=== PATIENT | male | born 1995 | race Caucasian/White ===

== ENCOUNTER 2017-02-11 20:32 | Emergency (ER) | payer SELFPAY ==
[~2017-02-11] VITALS: Ht 177.8 cm; Wt 75.4 kg
[~2017-02-11 20:32] MED LIST: LISD70CA3
[2017-02-11 20:37] VITALS: BP 125/71
[2017-02-11 21:23] LABS: ASPARTATE AMINO TRANSFERASE 18 U/L (15-37); BLOOD UREA NITROGEN 9 mg/dL (7-18)
[2017-02-11 21:35] LABS: IS PT STATUS REG ER OR PRE ER? YES
== END 2017-02-11 23:10 | disposition home or self-care (01) ==
LOC: ED 21:41
DX: M54.5 Low back pain (principal); R07.89 Other chest pain; F90.9 Attention-deficit hyperactivity disorder, unspecified type
CPT/HCPCS: 36415; 71010; 72110; 80053; 81001; 83690; 84484; 85025; 87086; 93005; 99285

== ENCOUNTER 2017-05-23 18:46 | Emergency (ER) | payer SELFPAY ==
[~2017-05-23] VITALS: Ht 177.8 cm; Wt 74.5 kg
[~2017-05-23 18:46] MED LIST changes: -LISD70CA3; +LISD70CA5
[2017-05-23] MEDS ORDERED: KETOROLAC 30 MG/1 ML ONE (19:27)
[2017-05-23] MEDS ORDERED: KETOROLAC 30 MG/1 ML IM ONE (19:30)
[2017-05-23 20:13] VITALS: BP 127/70
== END 2017-05-23 20:13 | disposition home or self-care (01) ==
LOC: ED 20:07
DX: J20.8 Acute bronchitis due to other specified organisms (principal); B96.89 Other specified bacterial agents as the cause of diseases classified elsewhere; M94.0 Chondrocostal junction syndrome [Tietze]; F90.9 Attention-deficit hyperactivity disorder, unspecified type; Z87.891 Personal history of nicotine dependence
CPT/HCPCS: 71020; 93005; 96372; 99284; J1885